=== PATIENT | male | born 1975 | race African-American/Black ===

== ENCOUNTER 2021-01-08 16:07 | Emergency (ER) | payer BC, OTHER ==
[~2021-01-08] VITALS: Ht 180.3 cm; Wt 118.8 kg
[~2021-01-08 16:07] MED LIST: CIPROFLOXACIN500 M1 PO; HYDROCHLOROTHIA25 M1 PO; NORCO 5-325 TA1 EACH PO
[2021-01-08 16:16] VITALS: BP 157/101
[2021-01-08] MEDS ORDERED: HYDROCHLOROTHIA25 M1 PO (16:52)
[2021-01-08] MEDS ORDERED: LISINOPRIL20 MG PO (16:52)
== END 2021-01-08 17:40 | disposition home or self-care (01) ==
LOC: ER 16:07
DX: I10 Essential (primary) hypertension (principal); Z76.0 Encounter for issue of repeat prescription